=== PATIENT | female | born 2000 | race Caucasian/White ===

== ENCOUNTER 2023-07-03 07:32 | Day surgery (SDC) | payer BC ==
[2023-07-03] VITALS (12 sets, daily range): BP systolic 107–179; BP diastolic 63–107
[~2023-07-03] VITALS: Ht 162.6 cm; Wt 64.1 kg
[~2023-07-03 07:32] MED LIST: DESV25TA PO
[2023-07-03] MEDS: LACTATED RINGERS 1,000 ML 1,000 ML IV PRN ×2 (08:11→11:00)
[2023-07-03] MEDS ORDERED: MIDAZOLAM INJ 2 MG/2 ML VIAL ONE (09:31)
[2023-07-03] MEDS ORDERED: proPOfol INJECTION 200 MG/20 ML VIAL IV ONE (09:31)
[2023-07-03] MEDS ORDERED: LIDOCAINE PF 2% 5 ML VIAL ONE (09:31)
[2023-07-03] MEDS ORDERED: dexAMETHasone INJ 10 MG/ML 1 ML VIAL ONE (09:31)
[2023-07-03] MEDS ORDERED: fentaNYL INJECTION 100 MCG/2 ML VIAL ONE (09:31)
--- NOTE | 2023-07-03 09:37 | Progress Note-Pre Operative ---
Pre-Operative Progress Note Date of Available H&P: Jul 03, 2023 Date H&P Reviewed: Jul 03, 2023 Time H&P Reviewed: 09:15 History & Physical: H&P Reviewed, No changes noted Pre-Operative Diagnosis: IUD strings lost plan is for hysteroscopy with removal of IUD poss. dxlap LOLITA FERRELL DO Jul 03, 2023 09:36
[2023-07-03] MEDS ORDERED: LIDOCAINE/EPI 1%-1:200,000 (XYLOCAINE) 30 ML VIAL ONE (10:20)
[2023-07-03] MEDS ORDERED: ROCURONIUM 50 MG/5 ML VIAL IV ONE (10:21)
[2023-07-03] MEDS ORDERED: NEOSTIGMINE 1 MG/1ML 10 ML VIAL ONE (11:51)
[2023-07-03] MEDS ORDERED: GLYCOPYRROLATE INJ 0.2 MG/ML 2 ML VIAL ONE (11:51)
[2023-07-03] MEDS ORDERED: SEVOFLURANE (ULTANE) 15 ML INHAL SOLN ONE (11:55)
[2023-07-03] MEDS ORDERED: IBUP-1773 PO (12:09)
[2023-07-03] MEDS ORDERED: ACHD5005 PO (12:09)
--- NOTE | 2023-07-03 12:10 | Discharge Inst-Simple/Standard ---
Discharge Inst-Standard Reconcile Patient Problems Problems Reviewed?: Yes Discharge Medications New, Converted or Re-Newed RX: Transmitted to Pharmacy Patient Instructions/Follow Up Plan of Care/Instructions/FU: Follow-up in 1 week Nothing in the vagina (no tampons, douching or intercourse) Activity as Tolerated: Yes Discharge Diet: Regular Diet LOLITA FERRELL DO Jul 03, 2023 12:10
--- NOTE | 2023-07-03 12:14 | Laparoscopy Operative Note ---
Laparoscopy Procedure Note Laparoscopy Procedure Note Patient Name: Sarah Bess Procedure Date: 07/03/23 Pre operative Diagnosis: Lost IUD Post operative Diagnosis: same Name of the Procedure: Hysteroscopy with operative laparoscopy with removal of IUD out of the omentum. Surgeon: LOLITA FERRELL Mandolin Repair Person: Alfredito DAVALOS Anesthesia: GeneralLMA converted to ETA Specimens: [none] EBL: Minimal Complications: Perforation of the uterus Indication for the procedure: /Para 2 / 2 presenting with Lost IUD Risks, benefits and alternatives to the procedure were discussed, and informed consent was obtained. Description of procedure: Patient was taken to the OR [facility]. 2 placed under general LMA anesthesia placed in the dorsolithotomy position prepped and draped usual sterile fashion. A timeout was performed. A pelvic exam under anesthesia revealed a normal-sized uterus no adnexal masses. A Morales catheter was placed inside the urinary bladder. A weighted speculum was placed into the posterior vaginal vault and a single-tooth tenaculum was used to grasp anterior lip of the cervix. Uterus sounded to 7 cm the os was dilated to allow passage of the hysteroscope the hysteroscope was then inserted and was able to see inside the cervix but once I got into the cavity I could not visualize anything. I did not see the an IUD in the uterine cavity. I believe that I had perforated the uterus at this time so we stopped that procedure and proceeded to a diagnostic laparoscopy. The weighted speculum was removed and a ring forcep was used to grasp the anterior lip of the cervix. Next attention was paid to the abdomen where the infraumbilical area was injected with 1% lidocaine with epi a small incision was made and using direct visualization ent ered into the abdominal cavity without any difficulty. The abdomen was insufflated using carbon oxide gas and the patient was placed in Trendelenburg position. 2 lateral ports were placed one in the left lower quadrant 1 in the left upper quadrant. Using graspers we inspected the area. There was noted to be a perforation along the side of the uterus which was oozy. There was noted to be a hematoma on the right fallopian tube which felt like there may have been an IUD in it. The bowel was inspected I did not see the IUD in the abdomen. The perforation was cauterized using monopolar cautery. That was made hemostatic. At this time I asked my partner, Alfredito FENECH, DO, to come in and take a look as along with me. He also saw the hematoma on the right fallopian tube and it was decided that it was damaged at this time and that there possibly was an IUD the ER. We then decided to remove the fallopian tube as it was already damaged and would increase her risk of ectopic . The LigaSure was used to open up right at the proximal end where the hematoma was to see if we could see the IUD. The IUD was unable to be seen so the LigaSure was used to grasp the mesosalpinx and cauterized along the mesosalpinx and the fallopian tube to the proximal end once this was done the fallopian tube was removed from the cavity.. We then looked inside the perforation to see if there was an IUD there would that was not the IUD was not inside the uterus. It was decided at that time that we would go ahead and bring the C arm in to do an x-ray and see if we could see the IUD. A grasper was used to clamp the cornua where we removed so that we would have a landmark to compare to. With the C arm it was noted that it was near the L5-S1 on the right side. We continue to look but we did not see it. It looks like it may have been floating along with the bowel. We used the C arm a few more times to be able to pinpoint where the IUD was. We did find the IUD embedded in the omentum around the small bowel. The IUD was grasped and removed through the trocar under direct visualization. The area was irrigated and was noted to be hemostatic. Our ports were removed without any difficulty and our incisions were reapproximated using 3-0 Monocryl in subcuticular fashion sealed with Dermabond. The single-tooth tenaculum that was on the anterior lip of the cervix was also removed. All my counts were correct x2 EBL was minimal fluids was 1600 cc urine output was 200 cc I/O was 3000/3000. The patient was taken to recovery room in stable condition. Vitals - Labs Vital Signs - I&O Vital Signs Date Time Temp Pulse Resp B/P (MAP) Pulse Ox O2 Delivery O2 Flow Rate FiO2 07/03/23 07:40 36.2 69 18 119/82 (94) 99 Room Air LOLITA FERRELL DO Jul 03, 2023 12:14
[2023-07-03] MEDS ORDERED: HYDROmorphone INJECTION 2 MG/ML VIAL IV ONE (12:15)
[2023-07-03] MEDS ORDERED: morphine INJ 10 MG/ML 1ML (SYR OR VIAL) IVP ONE (12:15)
[2023-07-03] MEDS ORDERED: MEPERIDINE INJ 50 MG/ML VIAL IVP ONE (12:15)
[2023-07-03] MEDS ORDERED: MEPERIDINE INJ 50 MG/ML VIAL ONE (12:29)
[2023-07-03] MEDS ORDERED: morphine INJ 10 MG/ML 1ML (SYR OR VIAL) ONE (12:43)
--- NOTE | 2023-07-03 13:14 | Anesthesia-General Post-Op ---
General Patient Condition Mental Status/LOC: Same as Preop Cardiovascular: Satisfactory Nausea/Vomiting: Absent Respiratory: Satisfactory Pain: Controlled Complications: Absent Post Op Complications Complications None Follow Up Care/Instructions Patient Instructions None needed. Anesthesia/Patient Condition Patient Condition Patient is doing well, no complaints, stable vital signs, no apparent adverse anesthesia problems. No complications reported per nursing. DIANE REYES CRNA Jul 03, 2023 13:14
[2023-07-03] MEDS ORDERED: IBUPROFEN 200 MG TABLET PO ONE (13:52)
[2023-07-03] MEDS ORDERED: IBUPROFEN 600 MG TABLET PO ONE (14:00)
--- NOTE | 2023-07-03 20:24 | Diagnostic Imaging Report ---
INDICATION: Malpositioned intrauterine device. FINDINGS: Single intraoperative view obtained of the lower abdomen demonstrates apparent intrauterine device overlying the lower abdomen at the level of L3-L4. 7.7 seconds of fluoroscopy time was used. 0.77 mGy of exposure. IMPRESSION: Intraoperative fluoroscopy view showed abnormal position of the intrauterine device. See operative report. Dictated by: Dictated on workstation # [id number]
== END 2023-07-03 15:50 | disposition home or self-care (01) ==
LOC: SDC 07:32
PROVIDERS: ATTEND Obstetrics & Gynecology
DX: T83.32XA Displacement of intrauterine contraceptive device, initial encounter (principal); Z28.310 Unvaccinated for COVID-19
CPT/HCPCS: 76000; 84703; 87081